=== PATIENT | female | born 1950 | race Caucasian/White ===

== ENCOUNTER 2019-01-21 20:50 | Emergency (ER) | payer MEDICARE, BC ==
[2019-01-21 21:33] LABS: #Eosinphils 0.1 thou/uL (0.0-0.7); #Monocytes 0.5 thou/uL (0.11-0.59); #Neutrophils 3.3 thou/uL (1.40-6.50); %Basophils 0.5 % (0.0-1.0); %Eosinophils 2.4 % (0.0-10.0); %Lymphocytes 33.2 % (21.0-51.0); %Monocytes 9.1 % (0.0-10.0); %Neutrophils 54.9 % (42.0-75.0); Mean Corpuscular HGB CONC 32.9 g/dL (32.0-36.0); Mean Corpuscular Hemoglobin 30.3 pg (27.0-31.0); Mean Corpuscular Volume 92.2 fL (78.0-98.0); Mean Platelet Volume 8.7 fL (7.4-10.4); Platelet Count 158 thou/uL (130-400); Red Blood Cell (RBC) Count 3.94 mill/uL (4.20-5.40)
--- NOTE | 2019-01-21 21:50 | RAD ---
AP VIEW CHEST: 01/21/19 HISTORY: Chest pain. AP view chest obtained on 01/21/19. Comparison made to previous exam from 05/01/14. AP view chest demonstrates a dual lead intracardiac defibrillator. Additional intracardiac lead is al so in place. Left axillary surgical dissection clips in place. The patient has had a previous left si ded mastectomy. No evidence of acute intrathoracic abnormality seen. Cardiomegaly is seen. No evidence effusions, pne umonia or pneumothorax seen. Pulmonary vascular congestion is noted. IMPRESSION: Cardiomegaly and pulmonary vascular congestion. POS: [facility]
[2019-01-21 22:30] LABS: ALT (SGPT) 13 U/L (8-55); AST (SGOT) 17 U/L (5-34); Albumin 4.3 g/dL (3.4-4.8); Alkaline Phosphatase 116 U/L (40-150); Anion Gap 14 mmol/L (10-20); BUN (Urea Nitrogen) 23 mg/dL (9.8-20.1); Bilirubin, Total 0.8 mg/dL (0.2-1.2); Calc. Creatinine Clearance 0 mL/min (70-130); Calcium 9.7 mg/dL (7.8-10.44); Carbon Dioxide 28 mmol/L (23-31); Chloride 103 mmol/L (98-107); Estimated GFR-MDRD 50; Glucose 103 mg/dL (80-115); Protein, Total 7.3 g/dL (6.0-8.3); Sodium 141 mmol/L (136-145)
== END 2019-01-21 23:16 | disposition home or self-care (01) ==
LOC: ERS 20:50
DX: M54.6 Pain in thoracic spine (principal); E78.5 Hyperlipidemia, unspecified; I10 Essential (primary) hypertension; Z79.899 Other long term (current) drug therapy; Z79.891 Long term (current) use of opiate analgesic; Z86.73 Personal history of transient ischemic attack (TIA), and cerebral infarction without residual deficits
CPT/HCPCS: 36415; 71045; 80053; 82550; 83880; 84484; 85025; 93005

== ENCOUNTER 2025-08-25 14:07 | Outpatient (CLI) | payer MEDICARE | END 2025-08-25 14:08 | disposition home or self-care (01) | LOC: BICMAMMO 14:07 | PROVIDERS: ATTEND Family Medicine | DX: M85.851 Other specified disorders of bone density and structure, right thigh (principal); M85.852 Other specified disorders of bone density and structure, left thigh; Z78.0 Asymptomatic menopausal state | CPT/HCPCS: 77080 ==